=== PATIENT | male | born 1955 | race Caucasian/White ===

== ENCOUNTER → 2016-06-26 | Outpatient (CLI) | payer BC, OTHER | END | disposition home or self-care (01) | LOC: LAB.O 15:15 | PROVIDERS: ATTEND Urology | DX: R97.20 Elevated prostate specific antigen [PSA] (principal) ==

== ENCOUNTER → 2017-04-16 | Outpatient (CLI) | payer OTHER | LOC: LAB.O 14:24 | PROVIDERS: ATTEND Urology | DX: R97.20 Elevated prostate specific antigen [PSA] (principal) ==

== ENCOUNTER → 2019-03-08 | Outpatient (CLI) | payer OTHER | LOC: GMAM 17:18 | PROVIDERS: ATTEND Family Medicine | DX: N41.0 Acute prostatitis (principal); R30.0 Dysuria ==

== ENCOUNTER → 2019-03-09 | Outpatient (CLI) | payer OTHER ==
--- NOTE | 2019-03-09 15:04 | US ---
EXAM DESCRIPTION: Bladder: ULTRASOUND. CLINICAL HISTORY: 63 years Male DYSURIA COMPARISON: None Available. TECHNIQUE: Transcutaneous scanning: Garza-scale and Doppler modes. FINDINGS: Significant mass effect on the base of the urinary bladder from the prostate gland which is heterogeneously hypoechoic with lobulated margin. Bilateral wall appears slightly thickened with edema. Dimensions are 4.8 x 3.9 x 3.7 cm. Estimated volume 36 mL. Minimal vascularity. Prevoid Bladder volume 56.4 mL. Post void bladder volume 33.8 mL. Micturition volume 22.6 mL. Intravesicular ureteral jets were not evaluated by Doppler. IMPRESSION: Enlarged prostate gland impressing on the base of the urinary bladder. Micturition volume 22.6 mL with initial prevoid volume 56.4 mL. Bladder wall slightly thickened with edema. Electronically signed by: Aleksandr Barreto MD 03/09/2019 3:02 PM [facility]
== END ==
LOC: US 07:44
PROVIDERS: ATTEND Family Medicine
DX: R30.0 Dysuria (principal); N40.0 Benign prostatic hyperplasia without lower urinary tract symptoms; N32.89 Other specified disorders of bladder

== ENCOUNTER → 2019-04-26 | Outpatient (CLI) | payer OTHER | DX: N20.0 Calculus of kidney (principal) ==